=== PATIENT | female | born 1940 | race African-American/Black ===

== ENCOUNTER → 2016-09-11 | Emergency (ER) | payer MEDICARE, BC ==
[~2016-09-11] VITALS: Ht 152.4 cm; Wt 59.0 kg
[~2016-09-11] MED LIST: ANTI-ITCH28 G1 TP; HYDROXYZINE HCL25 M1 PO
[2016-09-11 17:30] VITALS: BP 150/88
--- NOTE | 2016-09-11 17:47 | Emergency Room Report ---
History of Present Illness General Chief Complaint: Skin Rash/Abscess Source: Patient Present Illness HPI 76-year-old male presents emergency department complaining of itchy rash with a burning sensation described as 4-10 in severity to the left arm and left-sided breast x2 days. Patient reports multiple medium-size lesions are itchy and swollen. Patient reports feeling feverish denies chills. Patient is up-to- date with vaccinations patient denies wheezing, cough, swelling of the lips or tongue patient denies airway compromise. Patient denies recent outdoor activities. Patient denies crusting or discharge from the lesions. She denies history of immune compromise patient states past medical history of high blood pressure. denies breast tenderness, denies d/c from nipples. She denies abdominal pain, nausea, vomiting. Denies CP, Palpitations, LOC, AMS, dizziness, Changes in Vision, Sensation, paresthesias, or a sudden severe headache. Allergies: Coded Allergies: PENICILLINS (Verified Allergy, Unknown, 09/11/16) Patient History Past Medical History: see triage record Past Surgical History: none Pertinent Family History: none Now: No Immunizations: UTD Reviewed Nursing Documentation: PMH: Agreed, PSxH: Agreed Nursing Documentation-PMH Hx Hypertension: Yes Review of Systems All Other Systems: negative except mentioned in HPI Physical Exam Vital Signs Date Time Temp Pulse Resp B/P Pulse Ox O2 Delivery O2 Flow Rate FiO2 09/11/16 17:11 98.1 90 17 150/88 96 Room Air Sp02 EP Interpretation: reviewed, normal General Appearance: no apparent distress, alert, GCS 15, non-toxic Head: normocephalic, atraumatic Eyes: bilateral eye PERRL, bilateral eye normal inspection ENT: hearing grossly normal, normal pharynx, no angioedema, normal voice Neck: full range of motion, no meningismus, no bony tend, supple/symm/no masses Respiratory: chest non-tender, lungs clear, normal breath sounds, speaking full sentences Cardiovascular #1: regular rate, rhythm, no edema, normal capillary refill Gastrointestinal: non tender, soft, no guarding, no rebound Rectal: deferred Genitourinary: normal inspection, no CVA tenderness Musculoskeletal: back normal, gait/station normal, normal range of motion, non- tender Neurologic: alert, oriented x3, responsive, motor strength/tone normal, sensory intact, speech normal Psychiatric: judgement/insight normal, memory normal, mood/affect normal Skin: normal color, warm/dry, well hydrated, rash - multiple well indurated 1cm lesions on the LUE and 2 lesions on the lateral left breast, localized blanching erythema only, no increased temperature to palpation lesions most consistent with insect bites. Lymphatic: no adenopathy Medical Decision Making PA Attestation Dr. Box is my supervising Physician whom patient management has been discussed with. Diagnostic Impression: Primary Impression: Bed bug bite Qualified Codes: W57.XXXA - Bitten or stung by nonvenomous insect and other nonvenomous arthropods, initial encounter ER Course Pt. presents to the ED c/o Itching, swelling, and erythema of left UE, and left breast x 2 days. Ddx considered but are not limited to cellulitis, scabies, insect bites, tic bites, spider bites, contact dermatitis, Drug reaction, allergic reaction, fungal infection, lice.mastitis Vital signs: are WNL, pt. is afebrile H&PE are most consistent with insect bites most consistent with bed bugs. and localized reaction. ORDERS: none required at this time, the diagnosis is clinical ED INTERVENTIONS: None required at this time. DISCHARGE: At this time pt. is stable for d/c to home. Will provide printed patient care instructions, and any necessary prescriptions. Care plan and follow up instructions have been discussed with the patient prior to discharge. Last Vital Signs Date Time Temp Pulse Resp B/P Pulse Ox O2 Delivery O2 Flow Rate FiO2 09/11/16 17:11 98.1 90 17 150/88 96 Room Air Disposition: HOME, SELF-CARE Condition: Stable Scripts Hydrocortisone 2% Cream (ANTI-ITCH 2% CREAM) Y Cr 1 APPLIC TP TID, #28.4 GM Prov: Lizzeth Gonzalez 09/11/16 Hydroxyzine Hcl (HYDROXYZINE HCL) 25 Mg Tablet 25 MG PO Q6HR for 14 Days, #30 TAB Prov: Lizzeth Gonzalez 09/11/16 Referrals: NON PHYSICIAN (PCP) Patient Instructions: Bedbugs, [id number], Insect Bite, [id number] Additional Instructions: Take medications as directed. Follow up with PCP in 3-5 days Return sooner to ED if new symptoms occur, or current symptoms become worse. Do not drink alcohol, drive, or operate heavy machinery while taking hydroxyzine as this may cause drowsiness. - Please note that this Emergency Department Report was dictated using [employer] associate technology software, occasionally this can lead to erroneous entry secondary to interpretation by the dictation equipment. Lizzeth Gonzalez Sep 11, 2016 17:47
== END | disposition home or self-care (01) ==
LOC: EMR 17:40
DX: R21 Rash and other nonspecific skin eruption (principal); I10 Essential (primary) hypertension; Z88.0 Allergy status to penicillin; W57.XXXA Bitten or stung by nonvenomous insect and other nonvenomous arthropods, initial encounter; Y92.9 Unspecified place or not applicable; Y99.8 Other external cause status
CPT/HCPCS: 99284